=== PATIENT | female | born 1990 | race Caucasian/White ===

== ENCOUNTER 2024-10-09 13:32 | Emergency (ER) | payer OTHER, SELFPAY ==
--- NOTE | ~2024-10-09 | CT_ITS ---
EXAMINATION: CT abdomen pelvis w con DATE: 10/09/2024 15:16 INDICATION: Right-sided abdominal and flank pain. TECHNIQUE: Computed tomography (CT) of the abdomen and pelvis was performed with 100 mL Omnipaque-350 intravenous contrast. Automated exposure control and iterative reconstruction technique were employe d. The dose-length product was 523.29 mGy-cm. COMPARISON: 10/05/2015 FINDINGS: Mild atelectasis in the dependent right lower lobe. Heart size is normal. No pericardial or pleural e ffusion. Small calcified gallstone near the neck of the normal gallbladder with no wall thickening or pericholecystic inflammatory stranding to suggest acute cholecystitis. Liver is normal. No intra or extrahepatic biliary ductal dilation. Spleen, pancreas, bilateral adrenal glands and kidneys are norm al. There is mild urothelial thickening at the right renal pelvis which can be seen with ascending ur inary tract infection. Bladder is normal. Fibroid uterus. Bilateral adnexa are unremarkable. Bowels i ncluding the appendix are normal. No free intraperitoneal gas or fluid. No pathologically enlarged ab dominal or pelvic lymphadenopathy. Bones are unremarkable. IMPRESSION: 1. Mild wall thickening at the right renal pelvis which could be seen with ascending urinary tract in fection. Correlate with urinalysis. 2. Cholelithiasis. 3. Fibroid uterus. Reviewed, dictated and finalized at location A. IMPRESSION: 1. Mild wall thickening at the right renal pelvis which could be seen with asce nding urinary tract infection. Correlate with urinalysis. 2. Cholelithiasis. 3. Fibroid uterus.
--- OUTSIDE RECORDS SUMMARY | 2024-10-09 13:35 | XMS_ITS | Data Portability ---
Author Organization [facility] [email or web address], Main Office Address [address] [place] [address] Care Team Providers Care Director Ehs Name Role Phone ROMIEKimberlyFUNMILAYO ANGELLA Primary Care Provider Assessment Encounter Date Assessment Date Assessment LastModified by Organization Details LastModified Time 02/19/2024 02/19/2024 The patient gave verbal consent using TelePhonic services and the consent is documented in the medical record prior to using the service. The patient has been informed of what a TeleMedicine visit is. Patient is located at home. Provider is located at office. Names and roles of persons in addition to the patient and provider participating in telemedicine services include none. The patient had a 7 minute TeleMedicine consultation via [employer] to discuss the following: [email or web address] Not available 02/19/2024 14:16:24 08/20/2024 08/20/2024 The patient gave verbal consent using TeleHealth services and the consent is documented in the medical record prior to using the service. The patient has been informed of what a TeleMedicine visit is. Patient is located at home. Provider is located at office. Names and roles of persons in addition to the patient and provider participating in telemedicine services include none. The patient had a 10 minute TeleMedicine consultation via [employer] to discuss the following: [email or web address] Not available 08/20/2024 11:21:29 Plan of Treatment Reminders Order Date Submit Date Provider Last Modified By Organization Details Last Modified Time Details Appointments None recorded. Lab None recorded. Referral None recorded. Procedures None recorded. Surgeries None recorded. Imaging None recorded. Medication Orders Medrol (Maik) 4 mg tablets in a dose pack 2024 025 [facility][id number], [address], [place], [place], [id number], 5 11:00:36 cetirizine 10 mg tablet 2024 025 [facility] #[id number], [address], [place], [place], [id number], 5 11:00:34 benzonatate 200 mg capsule 2024 025 [facility] #[id number], [address], [place], [place], [id number], 5 11:00:34 zolpidem 10 mg tablet 2024 025 [facility] #[id number], [address], [place], [place], [id number], 5 15:46:54 cholecalcif keshawn (vitamin D3) 1,250 mcg (50,000 unit) capsule 2024 025 [facility] #[id number], [address], [place], [place], [id number], 5 15:46:54 cephalexin 500 mg capsule 2023 024 [facility] #[id number], [address], [place], [place], [id number], 5 15:19:09 meloxicam 15 mg tablet 2023 024 [facility] #[id number], [address], [place], [place], [id number], 4 12:52:49 zolpidem 10 mg tablet 2023 024 [facility] #[id number], [address], [place], [place], [id number], 4 15:26:37 Blisovi Fe /20 (28) 1 mg-20 mcg (21)/75 mg (7) tablet 2023 [facility] #26669, [address], [place], [place], [id number], 4 15:26:38 zolpidem 10 mg tablet 2023 [facility] #20921, [address], [place], [place], [id number], 4 14:17:13 Blisovi Fe 07/20 (28) 1 mg-20 mcg (21)/75 mg (7) tablet 2023 024 [facility] #63475, [address], [place], [place], [id number], 4 14:17:12 Patient TargetsNo targets recorded. Patient Instructions Encounter Date Encounter Id Patient Instructions Last Modified By Organization Details Last Modified Time 02/19/2024 [id number] Due to the COVID-19 (Novel Coronavirus) pandemic, it is within this context (and with the understanding that this method of patient encounter is in the patient s best interest as well as the health and safety of other patients and the public) that [facility] is being provided for this patient encounter rather than a gonk-ui-twrt visit. This patient encounter is appropriate at this time. This patient has been advised of the potential risks and limitations of this mode of treatment (including, but not limited to, the absence of in-person examination) and has agreed to be treated in a remote fashion despite these risks. Any and all of the patient s /patient s family s questions on this issue have been answered, and I have made no promises or guarantees to the patient. The patient has also been advised to contact this office for worsening conditions or problems, and seek emergency medical treatment and/or call 911 if the patient deems either necessary. HPI and/or vitals, if listed, were provided by the patient. [email or web address] Not available 02/19/2024 14:15:30 08/20/2024 [id number] Due to the COVID-19 (Novel Coronavirus) pandemic, it is within this context (and with the understanding that this method of patient encounter is in the patient s best interest as well as the health and safety of other patients and the public) that [facility] is being provided for this patient encounter rather than a ntmc-rm-xeps visit. This patient encounter is appropriate at this time. This patient has been advised of the potential risks and limitations of this mode of treatment (including, but not limited to, the absence of in-person examination) and has agreed to be treated in a remote fashion despite these risks. Any and all of the patient s /patient s family s questions on this issue have been answered, and I have made no promises or guarantees to the patient. The patient has also been advised to contact this office for worsening conditions or problems, and seek emergency medical treatment and/or call 911 if the patient deems either necessary. HPI and/or vitals, if listed, were provided by the patient. [email or web address] Not available 08/20/2024 11:20:17 Reason for Referral None Reported. Results Created Date Observation Date Name Description Value Unit Range Abnormal Flag Note LastModifiedBy Organization Detail LastModifiedTime 01/24/20 24 01/24/2024 CT, abdom en + pelvi s, w/ contr ast No observ ation record ed. [facility] [address] [place], [address], 01/28/2024 09:36:35 04/23/2004/23/2024 CT, abdom en, w/o contr ast No observ ation record ed. [facility] [address] [place], [address], 04/23/2024 15:21:35 05/01/20 24 05/01/2024 CT, abdom en + pelvi s, w/ contr ast No observ ation record ed. [facility] [address] [place], [address], 05/02/2024 19:05:25 05/01/20 24 05/01/2024 XR, abdom en No observ ation record ed. [email or web address] [facility] [address] [place], [address], 05/04/2024 16:28:27 Result Notes None recorded. Problems Name Problem SNOMED Code Status Onset Date Resolution Date Notes Provider Name and Address Organization Details Recorded Time Acute sinusitis 05658993 Active Not Available [facility] 3 08:08:51 Otalgia 63329124 Active 2016 Not Available [facility] 3 08:08:51 Insomnia 172209352 Active Not Available [facility] 3 08:08:51 Mixed anxiety and depressive disorder 789147998 Active 2018 Not Available [facility] 3 08:08:51 Eruption 235752357 Active Not Available [facility] 3 08:08:51 Vaginitis 46786823 Active Not Available [facility] 3 08:08:52 Genital herpes simplex 06803004 Active 2018 Not Available [facility] 3 08:08:52 Sinusitis 80940326 Active 2016 Not Available [facility] 3 08:08:52 Pharyngiti s 215606375 Active 2016 Not Available [facility] 3 08:08:52 Bacterial vaginosis 516646098 Active Not Available [facility] 3 08:08:52 Seasonal allergy 572405738 Active Not Available [facility] 3 08:08:52 Posterior rhinorrhea 76316229 Active Not Available [facility] 3 08:08:52 Pruritic rash 15536404 Active 2022 Jailene Blackmon NP [address] [address], [place], [address] , [facility] 3 12:25:59 Candidiasi s of vagina 95155430 Active 2022 Jailene Neymar, [employer]ERIV[employer]IVES [employer]ADER [address], [address], [place], [address] , [place] [facility] 3 12:54:02 Migraine 35190491 Active 2022 Jailene Blackmon, DERIVATIVES TRADER [address], [address], [place], [address] , [place] [facility] 3 12:28:26 Nausea 980443088 Active 2023 LORRAINE Costa [address], [address], [place], [address] , [place] [facility] 4 11:42:10 Obesity 515773909 Active 2023 LORRAINE Costa [address], [address], [place], [address] , [place] [facility] 4 11:47:44 Recurrent kidney stone 9265514270761 102 Active 2023 LORRAINE Costa [address], [address], [place], [address] , [place] [facility] 4 15:54:07 Paronychia of toe of left foot 5435605231363 9100 Active 2023 LORRAINE Costa [address], [address], [place], [address] , [place] [facility] 4 12:46:22 Vitamin D deficiency 47340406 Active 2024 LORRAINE Costa [address], [address], [place], [address] , [place] [facility] 5 15:48:51 Essential hypertensi on 60168044 Active [address], [place], [address] , [place] [facility] 5 15:49:29 Upper respirator y infection 43685146 Active [address], [place], [address] , [facility] [employer] [facility] [employer] [facility] 5 10:57:13 Problem Notes None recorded. Procedures Surgical History Date Name Laterality Status Provider Name and Address Organization Details Recorded Time 4 Telephone Visit completed LORRAINE Costa [address] [facility], [facility] [address], [place], [address], [facility] 02/19/2024 14:15:13 Imaging Results Imaging Date Name Status LastModified by Organiz ation Details LastModified Time 01/24/2024 CT, abdomen + pelvis, w/ contrast completed [facility] [address] [place], [address], 01/28/2024 09:36:35 04/23/2024 CT, abdomen, w/o contrast completed [facility] [address] [place], [address], 04/23/2024 15:21:35 05/01/2024 CT, abdomen + pelvis, w/ contrast completed [facility] [address] [place], [address], 05/02/2024 19:05:25 05/01/2024 XR, abdomen completed [email or web address] [facility] [address] [place], [address], 05/04/2024 16:28:27 Procedure Notes None recorded. Medical Equipment None Reported. Allergies Allergen ID Allergen Name Allergen Category Reaction Reaction Severity Criticality Documentation Date Start Date Code Code System Note Provider Name and Address Organization Details Recorded Time tetracycl ine medicatio n other Not available Not available 08/29/2022 31166 RxNorm Not Available [facility] 3 08:14:43 Medications Name Sig Start Date Stop Date Status Note LastModified by Organization Details LastModified Time Singulair 10 mg tablet Take 1 tablet every day by oral route in the evening for 90 days. 08/11 completed Not Available Not Available Not Available amoxicillin 500 mg capsule Take 1 capsule every 12 hours by oral route. active Not Available Not Available No t Available prednisone 10 mg tablet 03/21 completed Not Available Not Available Not Available loperamide 2 mg capsule 09/24 completed Not Available Not Available Not Available cetirizine 10 mg tablet TAKE 1 TABLET BY MOUTH EVERY DAY NEEDED FOR 30 DAYS active Not Available Not Available No t Available Maxalt-DIESEL DINKEY OPERATOR 10 mg disintegrat ing tablet 1 tab po x 1 with migraine. May repeat in 2 hours x 1 dose if symptoms persist. 03/21 completed Not Available Not Available Not Available azithromyci n 250 mg tablet TK 2 TS PO ON DAY 1, THEN TK 1 T PO D FOR 4 DAYS 09/24 completed Not Available Not Available Not Available ibuprofen 800 mg tablet TK 1 T PO Q 8 H FOR 5 DAYS WITH FOOD active Not Available Not Available No t Available fluconazole 150 mg tablet TAKE 1 TABLET BY MOUTH ONCE FOR 1 DAY 09/24 completed Not Available Not Available Not Available benzonatate 200 mg capsule Take 1 capsule 3 times a day by oral route as needed for 14 days. active Not Available Not Available No t Available hydrocodone 5 mg-acetamin ophen 325 mg tablet TAKE 1 TABLET BY MOUTH NEEDED NEEDED 05/12 completed Not Available Not Available Not Available Claritin 10 mg tablet Take 1 tablet every day by oral route in the morning for 90 days. 08/11 completed Not Available Not Available Not Available meloxicam 15 mg tablet Take 1 tablet every day by oral route as needed for 15 days. 2023 active Not Available Not Available Not Avai lable ondansetron HCl 4 mg tablet TAKE 1 TABLET BY MOUTH EVERY 8 HOURS 02/18 completed Not Available Not Available Not Available rizatriptan 10 mg tablet TAKE 1 TABLET BY MOUTH EVERY DAY NEEDED 02/18 completed Not Available Not Available Not Available diphenoxyla te-atropine 2.5 mg-0.025 mg tablet 11/16 completed Not Available Not Available Not Available metronidazo le 500 mg tablet TK 1 T PO Q 8 H FOR 7 DAYS active Not Available Not Available No t Available acyclovir 400 mg tablet Take 1 tablet every 8 hours by oral route for 14 days. 11/10 completed Not Available Not Available Not Available valacyclovi r 500 mg tablet TK 1 T PO QD UTD 07/10 completed Not Available Not Available Not Available ciprofloxac in 500 mg tablet TAKE 1 TABLET BY MOUTH EVERY 12 HOURS FOR 7 DAYS 02/18 completed Not Available Not Available Not Available sulfamethox azole 800 mg-trimetho prim 160 mg tablet TK 1 T PO BID FOR 7 DAYS 12/18 completed Not Available Not Available Not Available hydrocodone 10 mg-acetamin ophen 325 mg tablet TAKE 1 TABLET BY MOUTH EVERY 6 HOURS NEEDED FOR PAIN 09/24 completed Not Available Not Available Not Available triamcinolo ne acetonide 0.1 % topical cream APPLY THIN LAYER TOPICALLY TO THE AFFECTED AREA TWICE DAILY NEEDED FOR RASH 03/21 completed Not Available Not Available Not Available amoxicillin 500 mg tablet TAKE 1 TABLET BY MOUTH TWICE DAILY FOR 10 DAYS 03/21 completed Not Available Not Available Not Available ondansetron 8 mg disintegrat ing tablet Place 1 tablet twice a day by transling ual route as needed. 03/21 completed Not Available Not Available Not Available ketorolac 10 mg tablet TAKE 1 TABLET BY MOUTH EVERY 6 HOURS FOR 2 DAYS 05/12 completed Not Available Not Available Not Available amoxicillin 875 mg tablet Take 1 tablet every 12 hours by oral route with meals for 10 days. active Not Available Not Available No t Available Metrogel Vaginal 0.75 % (37.5 mg/5 gram) Insert 1 applicato rful twice a day by vaginal route. 05/13 completed Not Available Not Available Not Available tamsulosin 0.4 mg capsule TAKE 1 CAPSULE BY MOUTH EVERY 24 HOURS 08/04 completed Not Available Not Available Not Available dicyclomine 20 mg tablet TAKE 1 TABLET BY MOUTH FOUR TIMES DAILY 09/24 completed Not Available Not Available Not Available cephalexin 500 mg capsule TK ONE C PO BID FOR 10 DAYS 08/04 completed Not Available Not Available Not Available sertraline 25 mg tablet TAKE 1 TABLET BY MOUTH EVERY DAY 04/19 completed Not Available Not Available Not Available hydroxyzine HCl 25 mg tablet TAKE 1 TABLET BY MOUTH TWICE DAILY NEEDED 03/21 completed Not Available Not Available Not Available allopurinol 300 mg tablet Take 1 tablet every day by oral route as directed for 30 days. 08/04 completed Not Available Not Available Not Available zolpidem 10 mg tablet TAKE 1 TABLET BY MOUTH EVERY NIGHT AT BEDTIME NEEDED FOR SLEEP active Not Available Not Available No t Available methylpredn isolone 4 mg tablets in a dose pack FOLLOW PACKAGE DIRECTION S active Not Available Not Available No t Available ondansetron 4 mg disintegrat ing tablet DISSOLVE 1 TABLET ON THE TONGUE TWICE DAILY NEEDED active Not Available Not Available No t Available cefdinir 300 mg capsule TK 2 CS PO QD FOR 10 DAYS active Not Available Not Available No t Available fluticasone propionate 50 mcg/actuati on nasal spray,suspe nsion USE 2 SPRAYS IN EACH NOSTRIL IN THE MORNING QD active Not Available Not Available No t Available sertraline 50 mg tablet TAKE 1 TABLET BY MOUTH EVERY DAY 05/12 completed Not Available Not Available Not Available Ortho Tri-Cyclen (28) 0.18 mg(7)/0.215 mg(7)/0.25 mg(7)-0.035 mg tablet TK ONE T PO QD 07/10 completed Not Available Not Available Not Available naproxen 500 mg tablet TAKE 1 TABLET BY MOUTH TWICE DAILY WITH FOOD 02/18 completed Not Available Not Available Not Available Loestrin Fe 1.5/30 (28-Day) 1.5 mg-30 mcg (21)/75 mg (7) tablet Take 1 tablet every day by oral route. 05/13 completed Not Available Not Available Not Available amoxicillin 875 mg-potassiu m clavulanate 125 mg tablet TK 1 T PO Q 12 H FOR 10 DAYS active Not Available Not Available No t Available amoxicillin 500 mg-potassiu m clavulanate 125 mg tablet TAKE 1 TABLET BY MOUTH EVERY 12 HOURS FOR 10 DAYS 09/24 completed Not Available Not Available Not Available azithromyci n 500 mg tablet TK 2 TS PO ONE DOSE active Not Available Not Available No t Available nitrofurant oin monohydrate /macrocryst als 100 mg capsule TAKE 1 CAPSULE BY MOUTH EVERY 12 HOURS FOR 7 DAYS 01/06 completed Not Available Not Available Not Available cholecalcif keshawn (vitamin D3) 1,250 mcg (50,000 unit) capsule TAKE 1 CAPSULE BY MOUTH EVERY WEEK DIRECTED active Not Available Not Available No t Available Probiotic 1 PO EVERY OTHER DAY 2015 active Not Available Not Available Not Avai lable Lo Loestrin Fe 1 mg-10 mcg (24)/10 mcg (2) tablet TAKE 1 TABLET BY MOUTH EVERY DAY active Not Available Not Available No t Available Amethia Lo 0.1 mg-20 mcg (84)/10 mcg (7) tablets,3 month dose pack TK 1 T PO D 05/13 completed Not Available Not Available Not Available guaifenesin ER 600 mg tablet, extended release 12 hr TK 1 T PO Q 12 H FOR 5 DAYS active Not Available Not Available No t Available Blisovi Fe 07/20 (28) 1 mg-20 mcg (21)/75 mg (7) tablet TAKE 1 TABLET BY MOUTH DAILY DIRECTED ON PACKAGE active Not Available Not Available No t Available Afluria Qd 2018- (36 mos up)(PF)60 mcg (15 mcg x4)/0.5 mL IM syringe ADM 0.5ML IM UTD 02/09 completed Not Available Not Available Not Available ID NOW COVID-19 Test Kit USE DIRECTED 03/21 completed Not Available Not Available Not Available Mounjaro 2.5 mg/0.5 mL subcutaneou s pen injector Inject 0.5 mL every week by subcutane ous route as directed for 28 days. 02/18 completed Not Available Not Available Not Available Vitals Date Recorded Body height Body mass index (BMI) Body weight Provider Name and Address Organization Details Last Updated DateTime 02/19/2024 157.48 cm 30.2 kg/m2 21643.74 g JOSE Rudd Ronel [email or web address] 02/19/2024 14:05:03 Date Recorded Body height Body mass index (BMI) Body weight Body temperature Heart rate Respiratory rate Oxygen saturation Oxygen saturation in Arterial blood by Pulse oximetry Pain severity - 0-10 verbal numeric rating [Score] - Reported Systolic blood pressure Diastolic blood pressure Provider Name and Address Organization Details Last Updated DateTime 157.48 cm 30.6 kg/m2 12229.2 8 g 97.2 [degF] 117 /min 20 /min 98 % 98 % 8 210 mm[Hg] 120 mm[Hg] JOSE Rudd Ronel [email or web address] 15:04:48 Date Recorded Body height Body mass index (BMI) Body weight Body temperature Heart rate Oxygen saturation Oxygen saturation in Arterial blood by Pulse oximetry Pain severity - 0-10 verbal numeric rating [Score] - Reported Systolic blood pressure Diastolic blood pressure Provider Name and Address Organization Details Last Updated DateTime 4 157.48 cm 30.2 kg/m2 65684.7 4 g 97.8 [degF] 89 /min 97 % 97 % 6 170 mm[Hg] 92 mm[Hg] Angella Rodriguez, FACER OPERATOR [address] [facility], [facility] [address], [place], [address], [email or web address] 4 14:55:20 Date Recorded Body height Body mass index (BMI) Body weight Body temperature Heart rate Respiratory rate Oxygen saturation Oxygen saturation in Arterial blood by Pulse oximetry Pain severity - 0-10 verbal numeric rating [Score] - Reported Systolic blood pressure Diastolic blood pressure Provider Name and Address Organization Details Last Updated DateTime 5 157.48 cm 31 kg/m2 14902.5 6 g 97.3 [degF] 72 /min 20 /min 98 % 98 % 0 150 mm[Hg] 90 mm[Hg] Jailene Diehl RN [place] [email or web address] 5 15:23:26 Social History Question Answer Notes LastModified by Organizat ion Details LastModified Time Tobacco Smoking Status Never Smoker Not Available [facility] 08/29/2022 08:04:54 Do You Have An Advance Directive? No Information not available 03/21/2023 What Is Your Level Of Alcohol Consumption? None [id number] Information not available 08/29/2022 Is Blood Transfusion Acceptable In An Emergency? Yes Information not available 03/21/2023 What Is Your Level Of Caffeine Consumption? Occasional [id number] Information not available 08/29/2022 How Much Tobacco Do You Chew? None [id number] Information not available 08/29/2022 What Is Your Code Status? Full Code Information not available 03/21/2023 In The 14 Days Before Symptom Onset, Have You Had Close Contact With A Laboratory-anju edwardsed COVID-19 While That Case Was Ill? No [id number] Information not available 08/29/2022 In The 14 Days Before Symptom Onset, Have You Had Close Contact With A Person Who Is Under Investigation For COVID-19 While That Person Was Ill? No [id number] Information not available 08/29/2022 Are You Currently Employed? Yes Information not available 03/21/2023 What Type Of Diet Are You Following? REGULAR [id number] Information not available 08/29/2022 Which Illicit Or Recreational Drugs Have You Used? None [id number] Information not available 08/29/2022 Do You Or Have You Ever Used E-cigarettes Or Vape? Never Used Electronic Cigarettes [id number] Information not available 08/29/2022 What Is Your Occupation? [employer] Information n ot available 03/21/2023 Have There Been Any Changes To Your Family Or Social Situation? Yes Information not available 09/25/2023 Do You Use Insect Repellent Routinely? Yes Information not available 03/21/2023 [facility] 03/21/2023 Do You Have A Medical Power Of Kardex Clerk? No Information not available 03/21/2023 Do You Have Any Pets? Yes Information not available 03/21/2023 What Is Your Relationship Status? Single Information not available 03/21/2023 Do You Use Your Seat Belt Or Car Seat Routinely? Yes Information not available 03/21/2023 Do You Have Smoke And Carbon Monoxide Detectors In Your Home? Yes Information not available 03/21/2023 Do You Or Have You Ever Used Smokeless Tobacco? Never Used Smokeless Tobacco [id number] Information not available 08/29/2022 Are There Any Smokers In Your House? No Information not available 03/21/2023 Do You Participate In Social Media? Yes Information not available 03/21/2023 Do You Feel Stressed (tense, Restless, Nervous, Or Anxious, Or Unable To Sleep At Night)? [id number] Information not available 03/21/2023 Do You Use Sunscreen Routinely? Yes Information not available 03/21/2023 Have You Recently Traveled Abroad? No Information not available 03/21/2023 Sex: Unknown Functional Status Question Answer Note LastModified by Organizat ion Details LastModified Time What is your exercise level? None [id number] Information not available 08/29/2022 Mental Status None recorded. Family History Nothing Reported. Medical History Condition Response ALLERGIES/HAYFEVER Y KIDNEY STONES Y INSOMNIA Y HAVE YOU BEEN HOSPITALIZED OR SEEN IN [facility] ER IN THE PAST YEAR ? Y GERD/NAUSEA Gynecological History Statement/Question Response Abnormal Pap N Flow Moderate Date of LMP 07/28/2024 STIs/STDs Y Dislike of Light during Menstrual Headac he N Date of Last Pap 05/11/2020 Duration of Flow (days) 4 Most Recent Mammogram Current Control Method BCPs Age at Menarche 11 Breast Problems none Date of Last Colonoscopy Frequency of Cycle (Q days) 28 Most Recent Bone Density Sexually Active? N Menses Monthly Y Date of Last Pap Smear Discharge none Obstetrics History GPAL:G 0 P 0 0 0 0 Immunizations Vaccine Type Date Status Note Provider Nam e and Address Organization Details Recorded Time COVID-19, mRNA, LNP-S, PF, 30 mcg/0.3 mL dose 2 completed Not Available [facility] System 08/29/2022 08:14:30 SARS-COV-2 (COVID-19) vaccine, UNSPECIFIED 1 completed Not Available [facility] 08/29/2022 08:14:30 Influenza, split virus, quadrivalent, preservative 0 completed Not Available [facility] 08/29/2022 08:14:30 Tdap 4 completed Not Available [facility] 08/29/2022 08:14:30 Tdap 6 completed Not Available [facility] 08/29/2022 08:14:30 Influenza, split virus, quadrivalent, preservative 6 completed Not Available [facility] 08/29/2022 08:14:31 Past Encounters Encounter ID Performer Location Encounter Start Date Encounter Closed Date Diagnosis/Indication Diagnosis SNOMED-CT Code Diagnosis ICD10 Code Diagnosis Note [id number] [facility] [address] [address] 1 09/20/2020 00:00:00 09/20/2020 16:13:37 [id number] [facility] [address] [place] [id number] 1 01/06/2021 00:00:00 01/06/2021 10:50:58 [id number] [facility] [address] [place] [id number] 1 01/26/2021 00:00:00 01/26/2021 15:37:51 [id number] [facility] [address] [place] [id number] 1 04/19/2021 00:00:00 04/19/2021 09:35:02 [id number] [facility] [address] [place] [id number] 1 06/09/2021 00:00:00 06/09/2021 15:44:15 [id number] [facility] [address] 1 10/18/2021 00:00:00 10/18/2021 14:43:51 [id number] Jailene Blackmon NP [address] [address] 1 03/21/2023 12:25:53 03/21/2023 13:12:42 Insomnia 422572459 G47.00 Zolpidem 10 mg po daily. Acute sinusitis 96459177 J01.90 augmentin bid for 10 days.Take with probiotic. Pharyngitis 215692806 J0 2.9 Warm saltwater gargle. 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 Purulence noted [id number] LORRAINE Costa [address] [address] 1 08/04/2024 15:07:06 08/04/2024 15:42:04 Vitamin D deficiency 32897452 E55.9 Notes energy improvemen t while taking Insomnia 307265058 G47.0 0 Requires Zolpidem CSA UTDILPDMR verified Essential hypertension 77869304 I10 advised to decrease sodium and increase cardiovasc ular exerciseLi sinopril recommende d, would like to manage with lifestyle for now [id number] Angella Rodriguez FACER OPERATOR [address] [address] 1 08/20/2024 10:51:55 08/20/2024 11:25:09 Upper respiratory infection 20634912 J06.9 Advised to add Delsym, Vitamin C, Zinc, increased water intake. Rotate ibuprofen and tylenol for fever and pain Health Concerns Section Related Observation LastModified by Organization Detai ls LastModified Time None Recorded Concern Status LastModified by Organization Details LastModified Time None Recorded Advance Directives Directive N: Payers Encounter Date Sequence Insurance Name Policy Number Policy Mckenzie Covered Member ID Mckenzie Member ID Guarantor Name 02/19/2024 [address] [facility]: (PPO) [id number] Celine Guerrero [id number] Celine Guerrero 05/12/2024 1 *SELF PAY* lAexsandra Guerrero 06/16/2024 1 *SELF PAY* Alexsandra Guerrero 08/04/2024 1 [facility] [id number] Celine Guerrero [id number] Celine Guerrero 08/20/2024 1 [facility] [id number] Celine Guerrero [id number] Celine Guerrero Notes Date Note Type Note Provider Name and Address Organization Details Recorded Time 02/19/2024 text/html Celine Guerrero is a 33 year old on telephonic visit for controlled substance follow-up She is taking zolpidem 10 mg at bedtime PRN. She admits this is most nights. She states when she takes this she sleeps better and is able to wake up without difficulty. She has no further concerns at this time. CSA to be completed at next visit. Angella Rodriguez, FACER OPERATOR [address] [facility], [facility] [address], [place], [address], [facility] [employer] 02/19/2024 14:37:43 05/12/2024 text/html Celine Guerrero is a 33 year old female patient here today for FU on hospitalization. She has had 3 kidney stones, the first stone was 5 mm and obstructing, two more stone were behind the first stone. She had a stent placed and was discharged with Azo and tylenol.She was having severe stabbing pains. She now has a constant pressure. She has a cystoscopy scheduled for this saturday. She needs medication refills today She is taking Zolpidem 10 mg and feels that she is sleeping well LORRAINE Costa [address], [place], [address], [email or web address] 05/12/2024 15:27:05 06/16/2024 text/html Celine Guerrero is a 33 year old female patient here today for toe complaints She states that she noticed pain, redness, and zamora purulent drainage on 06/13/24. Pain is most severe on the medial aspect of the left great toe.She has tried triple antibiotic ointment with no relief. LORRAINE Costa [address], [place], [address], [email or web address] 06/16/2024 14:55:59 08/04/2024 text/html Celine Guerrero is a 33 year old patient here today for a 3 month FU Concerns related to obesity. I did prescribe Mounjaro in the past but she has not taken this. She is swimming and running on the treadmill. She is eating well Now has hypertension, would like to manage with diet and exercise Is taking Vitamin D supplement. Has weaned off of antidepressant and feels good mentally. Persistent insomnia. Is taking Zolpidem and notes 8 hrs of sleep with this. Without meds is harrison to get 3-4 hrs per night. LORRAINE Costa [address], [place], [address], [email or web address] 08/04/2024 15:50:39 08/20/2024 text/html Celine Guerrero is a 33 year old female via telehealth for a sick visit x3 days, worsening. Generalized malaise, fatigue, coughing, sneezing, headache, body aches, sore throat, low-grade fever, sinus pressure, chest pain with coughHas taken dayquil and nyquil OTC. Home BPs averaging 130/80 LORRAINE Costa [address], [place], [address], [email or web address] 08/20/2024 11:23:38 OBGyn Episode No OBEpisode recorded.
[2024-10-09 13:38] VITALS: BP 144/94; PULSE 86; RESP 16; TEMP 36.6; O2SAT 100
[2024-10-09 14:03] LABS: BEDSIDEPREGUCG Negative (Negative)
[2024-10-09 14:07] LABS: Basophils Absolute Auto 0.1 K/mm3 (0.0-0.1); Basophils Percent Auto 0.6 % (0.2-1.2); Eosinophils Absolute Auto 0.1 K/mm3 (0-0.3); Eosinophils Percent Auto 1.6 % (0-4.4); Hematocrit 36.6 % (37.0-47.0); Hemoglobin 11.9 g/dL (12.0-15.0); Immature Granulocyte Absolute 0.03 K/mm3 (0.00-0.031); Immature Granulocyte Percent A 0.3 % (0-0.5); Lymphocytes Absolute Auto 2.05 K/mm3 (0.9-3.2); Lymphocytes Percent Auto 23.8 % (18.3-44.2); Mean Corpuscular HGB Conc 32.5 g/dl (32-36); Mean Corpuscular Volume 89.3 fl (80-100); Mean Platelet Volume 10.3 fl (7.4-10.4); Monocytes Absolute Auto 0.7 K/mm3 (0.1-0.6); Monocytes Percent Auto 8.2 % (2.6-8.5); Neutrophils Absolute Auto 5.6 K/mm3 (1.3-6.7); Neutrophils Percent Auto 65.5 % (45.5-73.1); Platelet Count Result 220 k/mm3 (150-375); White Blood Count 8.6 K/mm3 (4.5-10.0)
[2024-10-09 14:11] LABS: Add Urine Microscopic? YES; Appearance Urine Cloudy (Clear); Bacteria Urine 1+ /hpf; Bilirubin Urine Negative (Negative); Blood Urine Negative (Negative); Color Urine Yellow (Yellow); Glucose Urine UA Negative (Negative); Ketones Urine Negative (Negative); Leukocyte Esterase Ur 3+ LEU/UL (Negative); Nitrate Urine Negative (Negative); Non Pathogenic Casts 0-2; Protein Urine Negative (Negative); RBC Urine 0-2 /hpf (0-2); Squamous Epithelial Cell Urine Few /hpf (Few); WBC Urine 51-100 /hpf (0-3)
[2024-10-09 14:20] LABS: Alanine Aminotransferase 20 U/L (6-35); Albumin Level 4.4 g/dL (3.5-5.1); Alkaline Phosphatase 71 U/L (38-126); Anion Gap 11 mmol/L (4-12); Aspartate Amino Transferase 23 U/L (14-36); Bilirubin,Total 0.5 mg/dL (0.2-1.3); Blood Urea Nitrogen 10 mg/dL (7-17); Calcium 8.6 mg/dL (8.4-10.2); Carbon Dioxide 22 mmol/L (22-30); Chloride 105 mmol/L (98-107); Estimated CRCL calculation 98 ml/min; Estimated Glomerular Filt Rate > 60; Glucose 93 mg/dL (65-110); Potassium 4.1 mmol/L (3.4-5.0); Sodium 138 mmol/L (137-145)
[2024-10-09] MEDS: KETOROLAC 30 MG/ML VIAL (*BKC) IV PUSH (15:04)
[2024-10-09] MEDS: SODIUM CHLORIDE 0.9% IV 1,000 ML 999 ML IV CONT (15:04)
--- NOTE | 2024-10-09 15:08 | ED.FEMALEGU ---
HPI - Female Genitourinary General Chief complaint: Urogenital-Female Stated complaint: Right flank pain-Hx Kidney stones Time Seen by Provider: 10/09/24 14:20 History of Present Illness HPI Narrative: Patient is a 34-year-old female who presents to the ER with right flank pain that started around 10:00 a.m. this morning. She reports she has a history of kidney stones. Patient reports she has no other pertinent medical history. She denies chance of , urinary symptoms, recent fevers, or chance of . Patient is rating her pain at a 6 out of 10. Related Data Allergies Allergy/AdvReac Type Severity Reaction Status Date / Time tetracycline Allergy Intermediate Nausea and Verified 10/09/24 13:34 Vomiting Review of Systems Review of Systems: All systems reviewed & are unremarkable except as noted in HPI and below Exam Narrative: GENERAL: Well appearing, well-nourished, non-toxic, in no acute distress. HEAD: Normocephalic, atraumatic. NECK: Supple. No adenopathy, no masses. RESPIRATORY: Airway patent, respirations nonlabored. Clear to auscultation bilaterally, no rales, rhonchi, wheezing. CARDIOVASCULAR: Regular rate and rhythm without murmurs, rubs, or gallops. Peripheral pulses 2+ and equal bilaterally. ABDOMINAL: Soft, nontender, nondistended, no hepatosplenomegaly. Normoactive BS. MUSCULOSKELETAL: Moves all extremities. Strength/ROM intact without gross deformities. +CVA R tenderness SKIN: Warm, dry, normal color. No rashes. NEURO: A&O X3. Speech clear. Cranial nerves II-XII intact. No ataxic movements. PSYCHIATRIC: Appropriate mood and affect. Normal interaction. Course Vital Signs Vital signs: Vital Signs Temperature 36.6 C 10/09/24 13:38 Pulse Rate 86 10/09/24 13:38 Respiratory Rate 16 10/09/24 13:38 Blood Pressure 144/94 H 10/09/24 13:38 Pulse Oximetry 100 10/09/24 13:38 Temperature 36.6 C 10/09/24 13:38 Pulse Rate 86 10/09/24 13:38 Respiratory Rate 16 10/09/24 13:38 Blood Pressure 144/94 H 10/09/24 13:38 Pulse Oximetry 100 10/09/24 13:38 MDM - Female Genitourinary MDM Narrative Medical decision making narrative: Patient is a 34-year-old female who presents to the ER with right flank pain that started around 10:00 a.m. this morning. She reports she has a history of kidney stones. Patient reports she has no other pertinent medical history. She denies chance of , urinary symptoms, recent fevers, or chance of . Patient is rating her pain at a 6 out of 10. Labs Ordered: CBC, CMP, UA Imaging Ordered: CT abdomen pelvis Medications Ordered: Toradol 30 mg IV, normal saline, Dilaudid 0.2 mg, ciprofloxacin 500 mg p.o. Results: Pt's CT scan indicates 1. Mild wall thickening at the right renal pelvis which could be seen with ascending urinary tract infection. Correlate with urinalysis. 2. Cholelithiasis. 3. Fibroid uterus. Diagnosis: Urinary tract infection, pyelonephritis Consults: urology (outpatient) Patient Education/Shared MDM: Results of lab work and imaging shared with patient. She endorses improvement following medication administration. Patient strongly advised to maintain hydration status upon discharge and follow-up with her PCP as soon as possible. She was advised to follow-up with urology due to her recurrent kidney stones. Pt will be discharged home with a prescription for Ciprofloxacin and Pyridium. Strict return precautions provided. Patient verbalized understanding and is in agreement with plan. Vital signs stable at time of discharge. All questions answered. Differential Diagnosis Differential diagnosis: Likely urinary tract infection and other (Kidney stone, renal colic, pyelonephritis) Lab Data Attestation: I reviewed the patient's lab results. 10/09/24 14:01 10/09/24 14:01 Labs: Lab Results 10/09/24 10/09/24 Range/Units 14:00 14:01 WBC 8.6 (4.5-10.0) K/mm3 RBC 4.10 L (4.2-5.4) M/mm3 Hgb 11.9 L (12.0-15.0) g/dL Hct 36.6 L (37.0-47.0) % MCV 89.3 (80-100) fl MCH 29.0 (26-34) pg MCHC 32.5 (32-36) g/dl RDW 13.0 (11.5-14.5) % Plt Count 220 (150-375) k/mm3 MPV 10.3 (7.4-10.4) fl Immature Gran % (Auto) 0.3 (0-0.5) % Neut % (Auto) 65.5 (45.5-73.1) % Lymph % (Auto) 23.8 (18.3-44.2) % [place] % (Auto) 8.2 (2.6-8.5) % Eos % (Auto) 1.6 (0-4.4) % Baso % (Auto) 0.6 (0.2-1.2) % Lymph # (Auto) 2.05 (0.9-3.2) K/mm3 [place] # (Auto) 0.7 H (0.1-0.6) K/mm3 Eos # (Auto) 0.1 (0-0.3) K/mm3 Baso # (Auto) 0.1 (0.0-0.1) K/mm3 Abs Immat Gran (auto) 0.03 (0.00-0.031) K/mm3 Absolute Neuts (auto) 5.6 (1.3-6.7) K/mm3 Absolute Nucleated RBC 0.000 (0.0-0.012) K/mm3 Nucleated RBC % 0.0 (0.0-0.2) % Sodium 138 (137-145) mmol/L Potassium 4.1 (3.4-5.0) mmol/L Chloride 105 (98-107) mmol/L Carbon Dioxide 22 (22-30) mmol/L Anion Gap 11 (4-12) mmol/L BUN 10 (7-17) mg/dL Creatinine 0.65 L (0.7-1.0) mg/dL Estim Creat Clear Calc 98 ml/min Estimated GFR > 60 (59 - ) Glucose 93 (65-110) mg/dL Calcium 8.6 (8.4-10.2) mg/dL Total Bilirubin 0.5 (0.2-1.3) mg/dL AST 23 (14-36) U/L ALT 20 (6-35) U/L Alkaline Phosphatase 71 (38-126) U/L Total Protein 7.0 (6.3-8.2) g/dL Albumin 4.4 (3.5-5.1) g/dL Urine Color Yellow (Yellow) Urine Appearance Cloudy H (Clear) Urine pH 8.0 (5.0-9.0) Ur Specific [place] 1.020 (1.001-1.035) Urine Protein Negative (Negative) mg/dL Urine Glucose (UA) Negative (Negative) mg/dL Urine Ketones Negative (Negative) mg/dL Ur Blood (Man) Negative (Negative) Urine Nitrate Negative (Negative) Urine Bilirubin Negative (Negative) Urine Urobilinogen 1.0 (<2.0) mg/dL Leukocyte Esterase Rfl 3+ H (Negative) MORRO/UL Urine RBC 0-2 (0-2) /hpf Urine WBC 51-100 H (0-3) /hpf Ur Squamous Epith Cells Few (Few) /hpf Urine Bacteria 1+ H /hpf Urine Casts 0-2 POC Urine HCG, Qual Negative (Negative) Imaging Data Attestation: I personally reviewed and interpreted this imaging study as follows: Radiologist's impression: Impressions Abdomen/Pelvis CT 10/09/24 15:36 IMPRESSION: 1. Mild wall thickening at the right renal pelvis which could be seen with ascending urinary tract infection. Correlate with urinalysis. 2. Cholelithiasis. 3. Fibroid uterus. Discharge Plan Discharge Clinical Impression: Urinary tract infection, Pyelonephritis Patient Disposition: Home Condition: Stable Instructions: Antibiotic Form, Urinary Tract Infection in Women (ED), Flank Pain (ED) Additional Instructions: Please return to the ER with any worsening symptoms. Follow-up with primary care provider as soon as possible. The canal of follow-up with urology due to your kidney stones. Take all medications as prescribed, including regularly scheduled medications. Completel your full dose of antibiotics. Patient Language: Romansh Prescriptions: New ciprofloxacin HCl [Cipro] 500 mg tablet 500 mg PO Q12H Qty: 10 0RF phenazopyridine [Pyridium] 200 mg tablet 200 mg PO TID Qty: 6 0RF Follow-up/Referrals: Kunal Yung MD [Physician] - (urology ) UNKNOWN,DOCTOR [Primary Care Provider] - Stand Alone Forms: Work/School Release IP Time of Disposition: 16:12
[2024-10-09] MEDS: CIPROFLOXACIN 500 MG TAB PO (16:07)
[2024-10-09 16:30] VITALS: BP 126/78; PULSE 86; RESP 16; TEMP 36.6; O2SAT 100
== END 2024-10-09 16:32 | disposition home or self-care (01) ==
PROVIDERS: Emergency Medicine; Emergency Provider Registered Nurse
DX: N12 Tubulo-interstitial nephritis, not specified as acute or chronic (principal); K80.20 Calculus of gallbladder without cholecystitis without obstruction; D25.9 Leiomyoma of uterus, unspecified
CPT/HCPCS: 36415; 74177; 80053; 81001; 81025; 85025; 87086; 96361; 96374; 99284; A9270; J1885; J7030; Q9967